=== PATIENT | female | born 1970 | race African-American/Black ===

== ENCOUNTER → 2016-10-27 | Outpatient (CLI) | payer SELFPAY ==
[~2016-10-27] MED LIST: ALBUTEROL17 GM INH; CALCIUM 500 +1 EAC2 PO; IBUPROFEN800 MG PO; LORTAB 5/500 TA1 TA1 PO; MULTI-VITAMIN1 EAC1 PO; ORUDIS75 M1 PO; TRAMADOL HCL50 M1 PO; VITAMIN D-32000 UNI1 PO; ZITHROMAX PO; ZITHROMAX1 G/PKT PO
== END | disposition home or self-care (01) ==
LOC: CBAR 07:48
DX: Z01.818 Encounter for other preprocedural examination (principal); E66.01 Morbid (severe) obesity due to excess calories
CPT/HCPCS: G0463

== ENCOUNTER → 2016-12-01 | Outpatient (CLI) | payer OTHER ==
--- NOTE | ~2016-12-01 | CR97 ---
[facility] A Service [facility] RADIOLOGY TEXT RESULTS PATIENT: ALEXANDER QUINTANILLA LOCATION: [facility] : 74 UNIT #: [id number] AGE: [address]: Rene Gomez III, MD SEX: F ORDER DR: [id number] [address] [address] [id number] O MR#: [id number] Acc #: [id number] NAME: ALEXANDER QUINTANILLA : 1970 SEX: F STUDY DATE/TIME: 12/01/2016 8:29 UNIT: [facility] ROOM: STUDY DESCRIPTION: CR Esophagram Attending Physician: Rene Gomez III, M.D. Referring Physician: Rene Gomez III, M.D. Ordering Physician: Rene Gomez III, M.D. Primary Care Physician: Sonam Primary Care Physician MEDICAL IMAGING REPORT This report is preliminary unless electronic signature is present EXAM Esophagram. HISTORY Preprocedure evaluation prior to Lap-Band placement. PROCEDURE The patient swallowed barium under fluoroscopy. Spot images were obtained. Total fluoro time 0.2 minutes. Total of 14 images were obtained. COMPARISON None FINDINGS Patient swallows the barium without difficulty. No esophageal mass or stricture. No appreciable hiatal hernia. IMPRESSION Negative esophagram. Dictated by... Reji Valle M.D. THIS IS AN ELECTRONICALLY VERIFIED REPORT Reji Valle M.D. at 12/03/2016 9:51 PM BRYSON/[place] TD: 12/01/2016 17:33 JOB #: [id number] [facility] A [facility] RADIOLOGY TEXT RESULTS PATIENT: ALEXANDER QUINTANILLA [id number] 74 UNIT #: [id number] AGE: [address]: Rene Gomez III, MD SEX: F ORDER DR: MEDICAL IMAGING REPORT Page 1 of 1 COPY
--- NOTE | ~2016-12-01 | CR63 ---
[facility] A Service of [facility] RADIOLOGY TEXT RESULTS PATIENT: ALEXANDER QUINTANILLA LOCATION: [facility] : 74 UNIT #: [id number] AGE: [address]: Rene Gomez III, MD SEX: F ORDER DR: [id number] [facility] [address] [facility] [place], [place] [address] [id number] O MR#: [id number] Acc #: [id number] NAME: ALEXANDER QUINTANILLA : 1970 SEX: F STUDY DATE/TIME: 12/01/2016 7:59 UNIT: [facility] ROOM: STUDY DESCRIPTION: CR Chest 2 View Attending Physician: Rene Gomez III, M.D. Referring Physician: Rene Gomez III, M.D. Ordering Physician: Rene Gomez III, M.D. Primary Care Physician: Primary Care Physician No MEDICAL IMAGING REPORT This report is preliminary unless electronic signature is present EXAM Chest PA and lateral, 12/01/2016 HISTORY Shortness of breath on exertion today. Morbid obesity, preop laparoscopic gastric banding. FINDINGS PA and lateral examination of the chest upright shows a good expansion of the parenchyma with a normal distribution of the pulmonary vascularity. There is no indication of congestion, effusion, infiltrate, tumor, or nodular density. The pleural reflections and diaphragmatic contours are normal. The cardiac silhouette and mediastinal anatomy is within normal limits. IMPRESSION Normal chest. Dictated by... Dylan López M.D. THIS IS AN ELECTRONICALLY VERIFIED REPORT Dylan López M.D. at 12/01/2016 10:52 AM LOI/sorin TD: 12/01/2016 09:56 JOB #: [id number] MEDICAL IMAGING REPORT Page 1 of 1 COPY
--- NOTE | ~2016-12-01 | EKG ---
PATIENT: ALEXANDER QUINTANILLA UNIT #: [id number] Ventricular Rate: 62 BPM Atrial Rate: 62 BPM P-R Interval: 204 ms QRS Duration: 90 ms Q-T Interval: 412 ms QTC Calculation(Bezet): 418 ms P Mercer: 39 degrees Calculated R Mercer: 75 degrees Calculated T Mercer: 67 degrees Diagnosis Line: Normal sinus rhythm Diagnosis Line: Normal ECG Diagnosis Line: No previous ECGs available Diagnosis Line: Confirmed by YANET ROBERTS MD ([id number]) on 12/01/2016 Diagnosis Line: 4:42:28 PM INTERPRETING MD: ALEJANDRA COLBY
[2016-12-01 09:48] LABS: HEMATOCRIT 38.5 % (35.0-45.0); HEMOGLOBIN 12.2 gm/dL (12.0-16.0); MEAN CELL VOLUME 86.4 FL (83-96); MEAN CORPUSCULAR HEMOGLOBIN 27.3 PG (28-34); MEAN CORPUSCULAR HGB CONC 31.6 g/dL (30-36); MEAN PLATELET VOLUME 8.9 FL (6.5-11.5); RED BLOOD COUNT 4.46 X10e (3.90-5.30); RED CELL DISTRIBUTION WIDTH 14.5 % (11.0-15.5); WHITE BLOOD COUNT 5.7 X10e3 (4.0-10.5)
[2016-12-01 10:27] LABS: ALBUMIN SERUM 3.9 g/dL (3.5-5.0); BILIRUBIN,TOTAL 0.7 mg/dL (0.2-2.0); BUN/CREATININE RATIO 13.75; CALCIUM SERUM 9.1 mg/dL (8.4-10.2); CREATININE SERUM 0.8 mg/dL (0.6-1.4); PROTEIN TOTAL SERUM 6.6 g/dL (6.0-8.3)
== END | disposition home or self-care (01) ==
LOC: CRAD 07:51
PROVIDERS: Surgery
DX: Z01.818 Encounter for other preprocedural examination (principal)
CPT/HCPCS: 36415; 71020; 74220; 80053; 80061; 84443; 85027; 93005

== ENCOUNTER → 2016-12-13 | Day surgery (SDC) | payer OTHER ==
--- NOTE | ~2016-12-13 | CR7 ---
[facility] A Service of [facility] RADIOLOGY TEXT RESULTS PATIENT: ALEXANDER QUINTANILLA LOCATION: [facility] : 74 UNIT #: [id number] AGE: [address]: Rene Gomez III, MD SEX: F ORDER DR: [id number] [facility] [address] [place], [place] [address] [id number] O MR#: [id number] Acc #: [id number] NAME: ALEXANDER QUINTANILLA : 1970 SEX: F STUDY DATE/TIME: 12/13/2016 9:49 UNIT: [facility] ROOM: STUDY DESCRIPTION: CR Abdomen Single AP View Attending Physician: Rene Gomez III, M.D. Ordering Physician: Rene Gomez III, M.D. Primary Care Physician: Irwin Bradley M.D. MEDICAL IMAGING REPORT This report is preliminary unless electronic signature is present EXAM AP abdomen. Date 12/13/2016 HISTORY Status post laparoscopic gastric band placement today. Abdominal pain. COMPARISON Esophagram 12/01/2016. FINDINGS A gastric band device has been placed. It projects at or just slightly below the expected location of the esophagogastric junction. Tubing appears intact with an insufflation port located in the left lower quadrant of the abdomen. No gross free intraperitoneal air is identified. Nonspecific nonobstructive bowel gas pattern. Imaged lung bases appear clear. The phi angle is 67.6 degrees. IMPRESSION Satisfactory postoperative appearance status post laparoscopic gastric band placement with phi angle approximates 67.6 degrees. Dictated by... Minna Mckenna M.D. THIS IS AN ELECTRONICALLY VERIFIED REPORT Minna Mckenna M.D. at 12/14/2016 7:03 AM [facility] A Service [facility] RADIOLOGY TEXT RESULTS PATIENT: ALEXANDER QUINTANILLA LOCATION: [facility] : 74 UNIT #: [id number] AGE: [address]: Rene Gomez III, MD SEX: F ORDER DR: TD: 12/13/2016 12:35 JOB #: [id number] MEDICAL IMAGING REPORT Page 1 of 1 COPY
--- NOTE | ~2016-12-13 | OR ---
Unit #: [id number] #: [id number] Patient: ALEXANDER QUINTANILLA [id number] [facility] [address] [facility] [place], [place] [address] [id number] O MR#: [id number] NAME: ALEXANDER QUINTANILLA ROOM: Date of Procedure: 12/13/2016 Admission Date: 12/13/2016 Surgeon: Rene Gomez III, M.D. : 1970 Attending Physician: Rene Gomez III, M.D. Primary Care Physician: Irwin Bradley M.D. OPERATIVE REPORT PREOPERATIVE DIAGNOSIS Chronic morbid obesity. POSTOPERATIVE DIAGNOSIS Chronic morbid obesity. SECONDARY DIAGNOSIS Anterior paraesophageal hernia. PROCEDURE PERFORMED Laparoscopic adjustable gastric banding (AP standard with low-profile port) and laparoscopic paraesophageal hernia repair. ANESTHESIA General. CABLE RIGGER Alonso Wade M.D. SPECIMENS None. COMPLICATIONS None apparent. ESTIMATED BLOOD LOSS Minimal. INDICATIONS FOR PROCEDURE This is a 46-year-old lady, who has chronic morbid obesity with a BMI of 54 and associated comorbidities of sleep apnea. She has been through the bariatric program at [facility] and understands risks and benefits of the procedure. DESCRIPTION OF PROCEDURE After consent was obtained, including the risks and benefits of slippage, erosion, port dysfunction, and possible failure of weight loss due to noncompliance, the patient was taken to the operating room and placed in the supine position. General anesthetic was administered and the abdomen was prepped and draped in standard surgical fashion. I began by making a 2 cm incision just above and to the left of the Unit #: [id number] #: [id number] Patient: ALEXANDER QUINTANILLA umbilicus. I used a Visiport to enter the peritoneal cavity without any difficulty. C02 pneumoperitoneum was then established. Next, I placed a 5 mm port in the right upper quadrant, a 5 mm Meño liver retractor in the subxiphoid region to provide exposure of the gastroesophageal junction. Next, a 10 mm port was placed in the left upper quadrant and a 5 mm port was placed in the left lateral subcostal region. I began by performing an examination of the GE junction to evaluate for a hiatal hernia. We then scored the peritoneal attachments overlying the angle of His. I then opened up the clear space in the gastrohepatic ligament, and then using 2 blunt graspers, I identified the small fat pad crossing over the right crura. I swept the fat anterior to the crura off the crura and using the pars flaccida, I created a retrogastric tunnel where the blunt grasper exited at the angle of His. Once I had made this tunnel safely, I then inserted an Allergan AP band into the abdominal cavity. This adjustable gastric band was then place around the upper part of the stomach and fastened and buckled anteriorly. We then tacked the lateral fundus over the band to the proximal pouch with 2 interrupted 0 Ethibond sutures. I then used a third stitch to imbricate the excess anterior stomach by going from the lesser curvature up towards where the last stitch was placed. We then had excellent hemostasis. I removed the Meño liver retractor. We then removed the port tubing through the initial port incision. The rest of the ports were removed, and the pneumoperitoneum was released. I then left a small tail on the tubing. We then attached the port to the excess band tubing. We placed a piece of Prolene mesh along the back side of the port and used a Prolene stitch to anchor this mesh in place. We then trimmed the excess mesh so that just a small footprint of mesh was in place behind the port. I then inserted the tubing back into the abdominal cavity, and we placed the port into a small pocket that was made just inferior to where our initial port incision was made. The mesh was in direct contact with the fascia, and this will scar in place to hold the port in place. We then injected all the port sites with 0.25% plain Marcaine, and I reapproximated the skin edges with interrupted 4-0 Vicryl subcuticular sutures. Steri-strips were then applied. The patient tolerated the procedure without any problems and returned to the recovery room in stable condition. ADDENDUM After exposure of the GE junction, the patient was noted to have a small to medium size anterior paraesophageal hernia. I scored the phrenoesophageal ligament, reduced the hernia defect including the hernia sac and after identifying both the right and left crura, I reapproximated the defect with an interrupted 0 Ethibond [id number] suture. I then proceeded with the case as listed above. Dictated by... Rene Gomez III, M.D. VCL/radha TD: 12/14/2016 08:17 JOB #: [id number] CC: Irwin Bradley M.D. Unit #: [id number] #: [id number] Patient: ALEXANDER QUINTANILLA OPERATIVE REPORT Page 1 of 1 X Rene Gomez III, MD X PROCEDURE OPERATIVE NOTE
== END | disposition home or self-care (01) ==
LOC: CSUR 06:00
DX: E66.01 Morbid (severe) obesity due to excess calories (principal); K44.9 Diaphragmatic hernia without obstruction or gangrene; G47.30 Sleep apnea, unspecified; Z68.43 Body mass index [BMI] 50.0-59.9, adult; Z79.1 Long term (current) use of non-steroidal anti-inflammatories (NSAID); Z79.899 Other long term (current) drug therapy; Z98.890 Other specified postprocedural states
CPT/HCPCS: 74000; 84703; C1781; J0330; J0690; J1100; J1650; J1885; J2250; J2405; J2710; J3010